=== PATIENT | female | born 1995 | race Caucasian/White ===

== ENCOUNTER 2017-04-15 16:13 | Inpatient (IN) | payer MEDICAID ==
[~2017-04-15] VITALS: Ht 160 cm; Wt 48.7 kg
[~2017-04-15 16:13] MED LIST: LEVO1TAB6 PO
[2017-04-15 16:57] LABS: HEMATOCRIT 42.7 % (34.6-47.8); HEMOGLOBIN 14.4 g/dL (11.7-16.4); WHITE BLOOD COUNT 7.7 x10^3/uL (3.4-10)
[2017-04-15 16:58] LABS: PH, VENOUS 7.373 pH (7.320-7.420)
[2017-04-15] MEDS ORDERED: ONDANSETRON 2MG/ML, 2ML IVPush ONE (17:00)
[2017-04-15] MEDS ORDERED: SODIUM CHLORIDE 0.9% 1,000ML IVBOLUS ONE (17:00)
[2017-04-15] MEDS ORDERED: SODIUM CHLORIDE FLUSH 10ML SYR IVF ONE (17:00)
[2017-04-15 17:10] LABS: BLOOD UREA NITROGEN 17 mg/dL (7-18)
[2017-04-15] MEDS ORDERED: ONDANSETRON 2MG/ML, 2ML ONE (17:18)
[2017-04-15] MEDS ORDERED: REGULAR INSULIN 62.5 UNITS in SODIUM CHLORIDE 0.9% 249.375 ML IV PRN ×2 (17:39→19:23)
[2017-04-15 17:42] LABS: HCG UR LOT HCG7030192
[2017-04-15 17:59] LABS: HCG UR OBC PASS
[2017-04-15] MEDS ORDERED: INSULIN REGULAR 100 UNITS/ML, 3ML VIAL IV ONE (18:00)
[2017-04-15] MEDS ORDERED: INSULIN REGULAR 100 UNITS/ML, 3ML VIAL ONE ×2 (18:25→23:50)
[2017-04-15] MEDS ORDERED: D5%-0.45% NACL 1,000 ML IV PRN (19:23)
[2017-04-15] MEDS ORDERED: SODIUM CHLORIDE 0.9% 1,000 ML IV SCH (19:23)
[2017-04-15] MEDS ORDERED: ONDANSETRON 2MG/ML, 2ML IVPush PRN (19:30)
[2017-04-15] MEDS: ENOXAPARIN 40 MG/0.4 ML SQ SCH (21:29)
[2017-04-15 21:36] VITALS: BP 105/56
[2017-04-15] MEDS: ACETAMINOPHEN 325 MG TABLET PO PRN (22:18)
[2017-04-15 23:22] LABS: BLOOD UREA NITROGEN 12 mg/dL (7-18)
[2017-04-16] MEDS ORDERED: INSULIN REGULAR 100 UNITS/ML, 3ML VIAL IVPush ONE
[2017-04-16 03:48] LABS: BLOOD UREA NITROGEN 14 mg/dL (7-18)
[2017-04-16 04:00] VITALS: BP 104/50
[2017-04-16] MEDS: SODIUM CHLORIDE 0.45% 1,000 ML IV SCH ×2 (04:13→13:00)
[2017-04-16] MEDS ORDERED: INSULIN REGULAR 100 UNITS/ML, 3ML VIAL SQ-INSULIN SCH (07:00)
[2017-04-16] MEDS: INSULIN ASPART 100 UNITS/ML, PEN SQ-INSULIN SCH ×4 (08:00→20:17)
[2017-04-16] MEDS: metFORMIN 500 MG TABLET PO SCH ×2 (10:06→19:07)
[2017-04-16 11:44] LABS: BLOOD UREA NITROGEN 12 mg/dL (7-18)
[2017-04-16 14:13] VITALS: BP 121/64
[2017-04-16] MEDS: NICOTINE 21 MG/24 HR PATCH.TD24 TD SCH (19:07)
[2017-04-16] MEDS: ENOXAPARIN 40 MG/0.4 ML SQ SCH (19:52)
[2017-04-16 19:54] VITALS: BP 100/61
[2017-04-16] MEDS: ACETAMINOPHEN 325 MG TABLET PO PRN (23:46)
[2017-04-17 03:03] VITALS: BP 108/73
[2017-04-17 06:33] VITALS: BP 113/73
[2017-04-17 06:41] LABS: BLOOD UREA NITROGEN 12 mg/dL (7-18)
[2017-04-17] MEDS: metFORMIN 500 MG TABLET PO SCH ×2 (07:51→18:38)
[2017-04-17] MEDS: INSULIN ASPART 100 UNITS/ML, PEN SQ-INSULIN SCH ×4 (07:55→22:59)
[2017-04-17 08:00] VITALS: BP 122/68
[2017-04-17 12:11] VITALS: BP 110/66
[2017-04-17] MEDS: NICOTINE 21 MG/24 HR PATCH.TD24 TD SCH (18:38)
[2017-04-17 18:54] VITALS: BP 108/67
[2017-04-17] MEDS: ENOXAPARIN 40 MG/0.4 ML SQ SCH (19:30)
[2017-04-17] MEDS: INSULIN DETEMIR 100 UNITS/ML, PEN SQ-INSULIN SCH (22:59)
[2017-04-18 02:30] VITALS: BP 110/65
[2017-04-18 08:07] VITALS: BP 115/70
[2017-04-18] MEDS: INSULIN ASPART 100 UNITS/ML, PEN SQ-INSULIN SCH ×3 (08:57→18:44)
[2017-04-18] MEDS: metFORMIN 500 MG TABLET PO SCH (08:58)
[2017-04-18] MEDS: INSULIN DETEMIR 100 UNITS/ML, PEN SQ-INSULIN SCH (08:58)
[2017-04-18 12:22] VITALS: BP 111/69
[2017-04-18] MEDS ORDERED: INSU100I28 SQ-INSULIN (12:24)
[2017-04-18] MEDS ORDERED: INSU100I18 SQ-INSULIN (12:24)
[2017-04-18] MEDS ORDERED: INSU100V13 SQ ×2 (16:14→16:26)
[2017-04-18] MEDS ORDERED: INSU100V14 SQ ×3 (16:16→16:26)
[2017-04-18] MEDS ORDERED: FLU VACC QS2017-18 (36MOS+) UP/PF 0.5 ML IM-VACC ONE (18:30)
[2017-04-18] MEDS ORDERED: PNEUMOCOCCAL 23 VACCINE IM-VACC ONE (18:30)
== END 2017-04-18 19:30 | disposition home or self-care (01) | DRG 638 ==
LOC: ED 18:29 → EDIP 18:58 → CCU 20:16 → 3NE 04-16 14:30
PROVIDERS: ADMIT Hospitalist; ATTEND Hospitalist
DX: E10.10 Type 1 diabetes mellitus with ketoacidosis without coma (principal); E87.1 Hypo-osmolality and hyponatremia; F11.20 Opioid dependence, uncomplicated; E86.0 Dehydration; Z83.3 Family history of diabetes mellitus; Z87.440 Personal history of urinary (tract) infections; Z87.891 Personal history of nicotine dependence
CPT/HCPCS: 36415; 80048; 80061; 81003; 81025; 82010; 82040; 82803; 82962; 83036; 83690; 83735; 83930; 84100; 84134; 84443; 85025; 87081; 90686; 90732; 96361; 96374; J1650; J1815; J2405; J7030; J7050